=== PATIENT | male | born 1975 | race Hispanic/Latino ===

== ENCOUNTER 2017-05-27 07:33 | Emergency (ER) | payer OTHER ==
[2017-05-27 07:38] VITALS: BP 119/84; PULSE 81; RESP 20; TEMP 97.4; O2SAT 99
--- NOTE | 2017-05-27 09:00 | RAD ---
PROCEDURE: Left Knee Radiographs. HISTORY: Pain. COMPARISON: None. FINDINGS: BONES: Normal. No fracture. JOINTS: Normal. No osteoarthritis. JOINT EFFUSION: There appears to be small suprapatellar joint effusion. OTHER FINDINGS: None. IMPRESSION: No evidence of acute displaced fracture nor dislocation. Small suprapatellar joint effusion.
--- NOTE | 2017-05-27 09:14 | ED PDOC ---
Lower Extremity Pain/Injury Time Seen by Provider: 05/27/17 08:01 Chief Complaint (Nursing): Lower Extremity Problem/Injury Chief Complaint (Provider): Lower Extremity Problem/Injury History Per: Patient History/Exam Limitations: no limitations Onset/Duration Of Symptoms: Days (x 3) Current Symptoms Are (Timing): Still Present Additional Complaint(s): Felice is a 42 year old male who presents to the emergency department complaining of left knee pain after jumping on trampoline on Saturday. Patient states he heard a pop, but not sure if it was trampoline itself. Patient is walking with a little bit of a limp. Patient reports he felt his knee gave out today. Was able to stand up with a limp. PMD: No Provider Past Medical History Vital Signs: Last Vital Signs Temp 97.4 F L 05/27/17 07:38 Pulse 81 05/27/17 07:38 Resp 20 05/27/17 07:38 BP 119/84 05/27/17 07:38 Pulse Ox 99 05/27/17 07:38 - Medical History PMH: Asthma, Back Problems - Family History Family History: States: Unknown Family Hx - Immunization History Hx Tetanus Toxoid Vaccination: Yes (2012) Hx Influenza Vaccination: No Hx Pneumococcal Vaccination: No - Home Medications Home Medications: Ambulatory Orders Medication Instructions Recorded Ibuprofen [Motrin] 600 mg PO Q6 PRN #30 tab 05/27/17 - Allergies Allergies/Adverse Reactions: Allergies Allergy/AdvReac Type Severity Reaction Status Date / Time No Known Allergies Allergy Verified 11/14/15 15:59 Review of Systems ROS Statement: Except As Marked, All Systems Reviewed And Found Negative Musculoskeletal: Positive for: Other (Left Knee Pain) Physical Exam - Reviewed Nursing Documentation Reviewed: Yes Vital Signs Reviewed: Yes - Physical Exam Extremity: Positive for: Normal ROM (Full ROM), Other (Full Strength). Negative for: Tenderness, Swelling - ECG O2 Sat by Pulse Oximetry: 99 (RA) Pulse Ox Interpretation: Normal Medical Decision Making Medical Decision Making: Time: 08:08 Impression: Knee Sprain - Motrin Tab 600 mg PO STAT - Left Knee X-Ray Left Knee X-Ray FINDINGS: BONES: Normal. No fracture. JOINTS: Normal. No osteoarthritis. JOINT EFFUSION: There appears to be small suprapatellar joint effusion. OTHER FINDINGS: None. IMPRESSION: No evidence of acute displaced fracture nor dislocation. Small suprapatellar joint effusion. Time: 08:55 - Maintain Knee Immobilizer - Crutches (-) Left Knee X-Ray Upon provider evaluation patient is medically stable, and requires no further treatment in the ED at this time. Patient will be discharged with Rx with Motrin. Counseling was provided and all questions were answered regarding diagnosis and need for follow up with orthopedics. There is agreement to discharge plan. Return if symptoms persist or worsen. Scribe Attestation: Documented by Tyshawn Stevens, acting as a scribe for Pedro Pichardo MD. Provider Scribe Attestation: All medical record entries made by the Scribe were at my direction and personally dictated by me. I have reviewed the chart and agree that the record accurately reflects my personal performance of the history, physical exam, medical decision making, and the department course for this patient. I have also personally directed, reviewed, and agree with the discharge instructions and disposition. Disposition - Clinical Impression Clinical Impression: Knee sprain - Patient ED Disposition Is Patient to be Admitted: No - Disposition Referrals: Aleksandra Walters MD [Staff Provider] - Disposition: Routine/Home Disposition Time: 08:56 Condition: IMPROVED Additional Instructions: Mr Garrett, thank you for letting us take care of you today. Your provider was Dr. Pichardo. You were treated for Knee Sprain. The emergency medical care you received today was directed at your acute symptoms. If you were prescribed any medication, please fill it and take as directed. It may take several days for your symptoms to resolve. Return to the Emergency Department if your symptoms worsen, do not improve, or if you have any other problems. Please contact your doctor or call one of the physicians/clinics you have been referred to that are listed on the Patient Visit Information form that is included in your discharge packet. Bring any paperwork you were given at discharge with you along with any medications you are taking to your follow up visit. Our treatment cannot replace ongoing medical care by a primary care provider (PCP) outside of the emergency department. Thank you for allowing the [facility] team to be part of your care today. If you had an X-Ray or CT scan: A Radiologist will review the ED reading if any change in treatment is needed we will contact you. If you had a blood, urine, or wound culture: It will take several days for the results, if any change in treatment is needed we will contact you. If you had an STI test: It will take 48 hours for the results. Please call after 1 week if you have not heard back. Prescriptions: Ibuprofen [Motrin] 600 mg PO Q6 PRN #30 tab PRN Reason: Pain, Moderate (4-7) Instructions: Knee Sprain (ED) Forms: [facility] ([place]), [facility] ED School/Work Excuse
== END 2017-05-27 09:11 | disposition home or self-care (01) ==
LOC: H.ER 07:33
DX: S83.92XA Sprain of unspecified site of left knee, initial encounter (principal); X50.9XXA Other and unspecified overexertion or strenuous movements or postures, initial encounter; Y92.89 Other specified places as the place of occurrence of the external cause; J45.909 Unspecified asthma, uncomplicated
CPT/HCPCS: 29530; 73560; 99282; L1830